=== PATIENT | male | born 1970 | race African-American/Black ===

== ENCOUNTER 2025-04-03 17:11 | Emergency (ER) | payer BC, SELFPAY ==
--- NOTE | ~2025-04-03 | CT_ITS ---
CT abdomen pelvis w con Ordering provider: Michelle Levin PA-C History: 55 years Male with . abd pain, nausea, constipatoin . Comparison: None. Technique: CT abdomen and pelvis with IV and without oral contrast. Automated exposure control and it erative reconstruction technique were employed. The dose-length product was 328.63 mGy-cm. 100 mL Omn ipaque 350 was given IV. Findings: VISUALIZED LOWER CHEST: Left lower lobe pleural-based nodule is seen measuring 1.3 x 1.5 cm. Further evaluation advised. Dependent atelectatic changes. UPPER ABDOMINAL ORGANS: Liver: Enhancing lesion is seen in the right lobe segment #7 which Measures 3.2 x 4.8 cm. This may represent a hemangioma but further evaluation with MRI with hemangiom a protocol is advised to exclude a mass or confirm a hemangioma. Gallbladder: Contracted. Spleen: Normal. Stomach/duodenum: Normal. Pancreas: Normal. Adrenals: Normal. Kidneys: Normal. PELVIC ORGANS: The bladder is underfilled with thickened wall. Further evaluation for cystitis is adv ised. BOWEL AND MESENTERY: Colon: No evidence of diverticulitis. Fecal material is loaded in the colon. Normal appendix. Small Bowel: Normal. No obstruction. Peritoneum/mesentery: No free air or free fluid. No mesenteric lymphadenopathy. RETROPERITONEUM: Normal aorta. No retroperitoneal lymphadenopathy. MUSCULOSKELETAL: Superficial soft tissues: The superficial soft tissues are normal. Bones: Age appropriate degenerative changes of the spine. Sclerotic changes in the inferior endplate of L3, inferior endplate of L4 and superior endplate of L5 which is most likely degenerative. Follow- up advised. IMPRESSION: 1. Nodule in the left lower lobe measuring 1.3 x 1.5 cm. Further evaluation advised with PET scan. 2. Enhancing lesion in the right lobe of the liver which may be a meningioma. Mass cannot be exclude d. Further evaluation with MRI with dynamic hemangioma protocol. 3. No evidence of appendicitis, diverticulitis or intestinal obstruction. 4. Constipation Reviewed, dictated and finalized at location A. IMPRESSION: 1. Nodule in the left lower lobe measuring 1.3 x 1.5 cm. Further evaluation ad vised with PET scan. 2. Enhancing lesion in the right lobe of the liver which may be a meningioma. Mass cannot be excluded. Further evaluation with MRI with dynamic hemangioma pr otocol. 3. No evidence of appendicitis, diverticulitis or intestinal obstruction. 4. Constipation
[2025-04-03 17:30] VITALS: BP 149/87; PULSE 76; RESP 16; TEMP 36.8; O2SAT 100
[2025-04-03 18:25] LABS: Basophils Percent Auto 0.4 % (0.2-1.2); Eosinophils Absolute Auto 0.2 K/mm3 (0-0.3); Eosinophils Percent Auto 2.8 % (0-4.4); Hematocrit 41.9 % (42.0-52.0); Hemoglobin 13.3 g/dL (14.0-18.0); Immature Granulocyte Absolute 0.02 K/mm3 (0.00-0.031); Immature Granulocyte Percent A 0.3 % (0-0.5); Lymphocytes Absolute Auto 2.86 K/mm3 (0.9-3.2); Lymphocytes Percent Auto 37.7 % (18.3-44.2); Mean Corpuscular HGB Conc 31.7 g/dl (32-36); Mean Corpuscular Hemoglobin 27.9 pg (26-34); Mean Platelet Volume 9.9 fl (7.4-10.4); Monocytes Absolute Auto 0.7 K/mm3 (0.1-0.6); Monocytes Percent Auto 8.6 % (2.6-8.5); Neutrophils Absolute Auto 3.8 K/mm3 (1.3-6.7); Neutrophils Percent Auto 50.2 % (45.5-73.1); Platelet Count Result 267 k/mm3 (150-375); Red Blood Count 4.76 M/mm3 (4.6-6.20); Red Cell Distribution Width 15.1 % (11.5-14.5); White Blood Count 7.6 K/mm3 (4.5-10.0)
[2025-04-03 18:29] LABS: Add Urine Microscopic? YES; Appearance Urine Cloudy (Clear); Bacteria Urine None Seen /hpf; Bilirubin Urine Negative (Negative); Blood Urine Negative (Negative); Color Urine Yellow (Yellow); Glucose Urine UA Negative (Negative); Ketones Urine Trace mg/dL (Negative); Leukocyte Esterase Ur Negative LEU/UL (Negative); Nitrate Urine Negative (Negative); Non Pathogenic Casts 0-2; Protein Urine Negative (Negative); RBC Urine 0-2 /hpf (0-2); Squamous Epithelial Cell Urine None Seen /hpf (Few); WBC Urine 0-5 /hpf (0-3)
[2025-04-03 18:31] LABS: Alanine Aminotransferase 21 U/L (6-50); Albumin Level 4.3 g/dL (3.5-5.1); Alkaline Phosphatase 73 U/L (38-126); Anion Gap 5 mmol/L (4-12); Aspartate Amino Transferase 39 U/L (17-59); Bilirubin,Total 0.3 mg/dL (0.2-1.3); Blood Urea Nitrogen 12 mg/dL (9-20); Calcium 9.3 mg/dL (8.4-10.2); Carbon Dioxide 31 mmol/L (22-30); Chloride 107 mmol/L (98-107); Estimated CRCL calculation 74 ml/min; Estimated Glomerular Filt Rate > 60; Glucose 100 mg/dL (65-110); Lipase 68 U/L (23-300); Potassium 3.9 mmol/L (3.4-5.0); Sodium 143 mmol/L (137-145); Total Protein 7.7 g/dL (6.3-8.2)
--- OUTSIDE RECORDS SUMMARY | 2025-04-03 19:04 | XMS_ITS | Encounter Summary ---
Author Organization [facility] [address] [place] [address] Phone Care Team Providers Care [employer]let [employer] Artistic Director Name Role Phone George Foreman MD Primary Care Provider [phone] Reason for Referral * Imaging (Routine) - Closed Specialty Diagnoses / Procedures Referred By Babak isaac Referred To Contact Radiology Diagnoses Cigarette smoker Procedures CT Lung Screening LDCT Jorje Montenegro MD [address] [place] [id number] Phone: tel: fax: [facility] [address] [place] [address] Phone: tel: fax: Referral ID Status Reason Start Date Expiration Date V isits Requested Visits Authorized [id number] Closed Perform Procedure 02/25/2024 02/25/2025 1 1 Encounter Details Date Type Department Care Team (Late st Contact Info) Description 02/25/2024 [facility] [address] [id number] Jorje Montenegro MD [address] [place] [address] Cigarette smoker (Primary Dx) Social History Tobacco Use Types Packs/Day Years Used Date Smoking Tobacco: Never Assessed Sex and Gender Information Value Date Recorded Sex Assigned at Not on file Legal Sex Male 8:16 PM EDT Gender Identity Not on file Sexual Orientation Not on file documented as of this encounter Plan of Treatment Scheduled Orders Name Type Priority Associated Diagnoses Orde r Schedule CT Lung Screening LDCT Imaging Routine Cigarette smoker Expected: 02/25/2024, Expires: 02/24/2025 documented as of this encounter Visit Diagnoses Diagnosis Cigarette smoker- Primary Tobacco use disorder documented in this encounter Care Teams [employer] Artistic Director Relationship Specialty Start Date End Date George Foreman MD [address] [place] [phone] PCP - General Primary Care 08/28/24 documented as of this encounter
--- OUTSIDE RECORDS SUMMARY | 2025-04-03 19:04 | XMS_ITS | Continuity of Care Document ---
Author Organization [facility] Address [address] [place] [address] Care Team Providers Care Pharmacy Informaticist Name Role Phone Jaycob Corey MD Unavailable Unavailable Allergies, Adverse Reactions, Alerts Substance Reaction Status Criticality No Known Allergies Active No Inform ation Advance Directives Directive Yes / No Effective Date File Name No Information Encounters Encounter Description Practice Location Reason(s) For Visit Diagnoses Date Provider Providers Copied on Encounter [facility] , [address] [place] [address] No Information 9 Madhav Devries. [address] [place] [address], . tel:[phone] [facility] , [address] [place] [address] No Information 9 No Information [facility] , [address] [place] [address] No Information 9 No Information [facility] , [address] [place] [address] R&E No Information 9 No Information [facility] , [address] [place] [address] R&E Human immunodeficie ncy virus [HIV] diseaseEsopha geal reflux 9 Madiha Kimbrough. [address] [place] [address], . tel:[phone] Family History Family Member Type Diagnosis Age At Onset No Information Payers Payer name Insurance type Covered libertarian ID Authoriza tion(s) No Information Social History Type Description Quantity Date Captured Comments Alcohol Use Details Unknown Caffeine Use Details Unknown Tobacco Use Status No Information Smoking Status No Information Sex Male Vital Signs Date / Time: Height Weight BMI Pulse Rate Blood Pressure Temperature Respiratory Rate Body Surface Area Head Circumference BMI percentile Pulse Ox Inhaled Ox 11:27 AM 86.183 kg (190.00 lbs) 104 /min 99.60 F 14 /min 96 11:32 AM 150/96 mm[Hg] Chief Complaint And Reason For Visit No Information Plan Of Treatment Date Type Action Status Future Order: Lab Order BASIC ME TABOLIC PANEL (BMP), Scheduled for: Ordered Future Order: Lab Order HIV-1 RN A BY PCR, QN. (LHIVRNA), Scheduled for: Ordered Future Order: Lab Order HEPATITI S B CORE AB TOTAL (LHBCAB), Scheduled for: Ordered Future Order: Lab Order HEPATITI S B SURFACE ANTIBODY (LHBSAB), Scheduled for: Ordered Future Order: Lab Order HEPATITI S B SURFACE ANTIGEN (LHBSAG), Scheduled for: Ordered History Of Present Illness Encounter Date Complaint History Of Prese nt Illness No Information Instructions Date Instruction Additional Infor mation No Information Assessments Type Assessment Date No Information
--- OUTSIDE RECORDS SUMMARY | 2025-04-03 19:04 | XMS_ITS | Clinical Summary ---
Author Organization [facility] Address [address] [place] [address] Phone Care Team Providers Care Flour Mixer Helper Name Role Phone George Foreman MD Primary Care Provider Allergies No known active allergies Medications pravastatin (Pravachol) 10 mg tablet Take 10 mg by mouth. 09/25/2024 Active Symtuza [phone] mg tablet 09/25/2024 Active Active Problems No known active problems Social History Tobacco Use Types Packs/Day Years Used Date Smoking Tobacco: Every Day Cigarettes Tobacco Cessation:Ready to Q uit: Not Asked; Counseling Given: Not Answered Comments:A day Alcohol Use Standard Drinks/Week Comments Yes 0 (1 standard drink = 0.6 oz pur e alcohol) Sex and Gender Information Value Date Recorded Sex Assigned at Not on file Legal Sex Male 8:16 PM EDT Gender Identity Not on file Sexual Orientation Not on file Last Filed Vital Signs Vital Sign Reading Time Taken Comments Blood Pressure 152/90 09/26/2024 11:35 AM EST Pulse 67 09/26/2024 11:34 AM EST Temperature 36.8 C (98.2 F) 09/26/2024 9:56 AM EST Respiratory Rate 18 09/26/2024 9:56 AM EST Oxygen Saturation 99% 09/26/2024 11:35 AM EST Inhaled Oxygen Concentration - - Weight 90.7 kg (200 lb) 09/26/2024 9:56 AM EST Height 188 cm (6' 2) 09/26/2024 9:56 AM EST Body Mass Index 25.68 09/26/2024 9:56 AM EST Plan of Treatment Health Maintenance Due Date Last Done Comments CT Colonography 1971 FIT-DNA 1971 FIT 1971 FOBT 1971 HIV Screening 1971 Sigmoidoscopy 1971 Hepatitis B Vaccines (1 of 3 - 19+ 3-dose series) 1990 Zoster Vaccines (1 of 2) 2021 COVID-19 Vaccine (3 - 2023- season) 2024 07/09/2021, 06/08/2021 Depression Screening 11/01/2024 Colonoscopy 09/26/2027 09/26/2024 Colorectal Cancer Screening 09/26/2027 MMR Vaccines Completed 01/04/1975 Pneumococcal Vaccine: 50+ Years Completed 07/22/2022, 09/02/2016, 12/12/2015, Additional history exists Influenza Vaccine Completed 09/25/2024, , 08/18/2021, Additional history exists HIB Vaccines Aged Out No longer eligi ble based on patient's age to complete this topic HPV Vaccines Aged Out No longer eligi ble based on patient's age to complete this topic Meningococcal B Vaccine Aged Out No l onger eligible based on patient's age to complete this topic Meningococcal Vaccine Aged Out No tatyana katja eligible based on patient's age to complete this topic RSV <20 Months Aged Out No longer rex gible based on patient's age to complete this topic Procedures Procedure Name Priority Date/Time Associated Diagnosis Comments COLONOSCOPY Routine 09/26/2024 11:00 AM EST Colon cancer screening from Last 3 Months or Most Recently Relevant to Health Maintenance Results * Colonoscopy (09/26/2024 11:00 AM EST) Anatomical Region Laterality Modality Endoscopy Narrative 09/26/2024 11:07 AM EST Table formatting from the original result was not included. Date of Service 09/26/2024 Indication Colon cancer screening Staff Kristian Watson MD (Proceduralist) Roya Feldman RN (Endo Nurse) No additional Endoscopist present for procedure. Medications See Anesthesia Record. Scope * No equipment listed * Preprocedure A history and physical has been performed, and patient medication allergies have been reviewed. The patient's tolerance of previous anesthesia has been reviewed. The risks and benefits of the procedure and the sedation options and risks were discussed with the patient. All questions were answered and informed consent obtained. Details of the Procedure The patient underwent monitored anesthesia care, which was administered by an anesthesia professional. A digital rectal exam was performed. A perianal exam was performed. The scope was introduced through the anus and advanced to the cecum. Retroflexion was performed in the rectum. The quality of bowel preparation was evaluated using the [place] Bowel Preparation Scale with scores of: right colon = 3, transverse colon = 3, left colon = 3. The total BBPS score was 9. Bowel prep was adequate. The patient experienced no blood loss. The procedure was not difficult. The patient tolerated the procedure well. There were no apparent adverse events. Findings The cecum, ascending colon, hepatic flexure and transverse colon appeared normal. Six sessile and benign-appearing polyps measuring smaller than 5 mm in the descending colon; performed cold forceps biopsy with complete en bloc removal. Patient had numerous, too numerous to count polyps in the ascending colon. There were all flat mucosa similar to the background mucosa consistent with hyperplastic polyps. They were removed with a biopsy forceps. One pedunculated and adenomatous-appearing polyp measuring 10-19 mm in the sigmoid colon; no bleeding was identified; performed hot snare with complete en bloc removal and retrieved specimen Four sessile and benign-appearing polyps measuring smaller than 5 mm in the rectum; no bleeding was identified; performed cold forceps biopsy with complete en bloc removal. Patient had numerous polyps in the rectum that all appeared to be hyperplastic polyps were removed with a biopsy forceps. There were removed in their entirety. Impression The cecum, ascending colon, hepatic flexure and transverse colon appeared normal. 10 subcentimeter polyps were removed with cold forceps biopsy One polyp measuring 10-19 mm in the sigmoid colon; performed hot snare removal Recommendation Repeat colonoscopy in 3 years, due: 09/26/2027 The polyps were hyperplastic but there was some larger size and they were biopsied to rule out adenomatous change. There was a polyp that was clearly adenomatous and it was on a long stalk in the sigmoid colon it was snared and removed with cautery. Jorje Montenegro MD ENDOSCOPY PROCEDURE ORDERABLES F inal Result from Last 3 Months or Most Recently Relevant to Health Maintenance Insurance [employer] Care Teams Flour Mixer Helper Relationship Specialty Start Date End Date George Foreman MD [address] [place] [phone] PCP - General Primary Care 08/28/24
--- OUTSIDE RECORDS SUMMARY | 2025-04-03 19:04 | XMS_ITS | Encounter Summary ---
Author Organization [facility] Address [address] [place] [address] Phone Care Team Providers Care Skein Mercerizing Machine Operator Name Role Phone George Foreman MD Primary Care Provider [phone] Reason for Referral * Outpatient Surgery (Routine) - Authorized Specialty Diagnoses / Procedures Referred By Babak isaac Referred To Contact Gastroenterology Diagnoses Colon cancer screening Procedures Colonoscopy Jorje Montenegro MD [address] [place] [address] Phone: tel: fax: Referral ID Status Reason Start Date Expiration Date V isits Requested Visits Authorized [id number] Authorized 06/06/2024 06/07/2025 2 2 Encounter Details Date Type Department Care Team (Late st Contact Info) Description 06/06/2024 Community Orders [facility] [address] [place] [address] Jorje Montenegro MD [address] [place], [place] [id number] Colon cancer screening (Primary Dx) Social History Tobacco Use Types Packs/Day Years Used Date Smoking Tobacco: Never Assessed Sex and Gender Information Value Date Recorded Sex Assigned at Not on file Legal Sex Male 8:16 PM EDT Gender Identity Not on file Sexual Orientation Not on file documented as of this encounter Plan of Treatment Not on file documented as of this encounter Results * Colonoscopy (09/26/2024 11:00 AM EST) [...] of bowel preparation was evaluated using the [place] Bowel Preparation Scale with scores of: right [...] MD ENDOSCOPY PROCEDURE ORDERABLES F inal Result documented in this encounter Visit Diagnoses Diagnosis Colon cancer screening- Primary Special screening for malignant neoplasms, colon Colon cancer screening Special screening for malignant neoplasms, colon documented in this encounter Care Teams Skein Mercerizing Machine Operator Relationship Specialty Start Date End Date Goerge Foreman MD [address] [place] [phone] PCP - General Primary Care 08/28/24 documented as of this encounter
--- OUTSIDE RECORDS SUMMARY | 2025-04-03 19:04 | XMS_ITS | Encounter Summary ---
Author Organization [facility] Address [address] [place] [phone] Phone Care Team Providers Care Proof Coin Collector Name Role Phone George Foreman MD Primary Care Provider [phone] Reason for Referral * Imaging (Routine) - Authorized Specialty Diagnoses / Procedures Referred By Babak isaac Referred To Contact Radiology Diagnoses Cigarette smoker Procedures CT Lung Screening LDCT Jorje Montenegro MD [address] [place] [address] Phone: tel: fax: [facility] [address] [place] [address] Phone: tel: fax: Referral ID Status Reason Start Date Expiration Date Visits Requested Visits Authorized [id number] Authorized Perform Procedure 08/26/2025 1 1 Encounter Details Date Type Department Care Team (Late st Contact Info) Description 08/25/2024 Community Orders [facility] [address] [id number] Jorje Montenegro MD [address] [place], [place] [phone] Cigarette smoker (Primary Dx) Social History Tobacco [...] Screening LDCT Imaging Routine Cigarette smoker Expected: 08/25/2024, Expires: 08/25/2025 documented as of this encounter Visit Diagnoses Diagnosis Cigarette smoker- Primary Tobacco use disorder documented in this encounter Care Teams Proof Coin Collector Relationship Specialty Start Date End Date George Foreman MD [address] [place] [phone] PCP - General Primary Care 08/28/24 documented as of this encounter
--- NOTE | 2025-04-03 19:16 | ED.ABDPAIN ---
HPI - Abdominal Pain General Chief Complaint: Abdominal Pain Stated Complaint: abd pain Time Seen by Provider: 04/03/25 18:07 Source: patient Mode of arrival: ambulatory Limitations: no limitations History of Present Illness HPI narrative: Patient is a 55 y/o male who presents to the ED with c/o abd pain. Patient reports having intermittent diffuse abdominal pain over the last 6 days. Denies significant aggravating or relieving factors. Did attempt to take Pepto-Bismol, but denied improvement with this. Reports nausea and constipation. States it has been several days since he had a substantial bowel movement. Did pass a small amount of stool 2 days ago. Denies vomiting. Denies fevers. Denies urinary complaints. Does admit to being under increased stress for the past 2 weeks after his father's passing. Related Data Allergies Allergy/AdvReac Type Severity Reaction Status Date / Time No Known Allergies Allergy Verified 04/03/25 18:13 Review of Systems Review of Systems: All systems reviewed & are unremarkable except as noted in HPI. All systems reviewed & are unremarkable except as noted in HPI and below Exam Narrative: GENERAL: Well appearing, well-nourished, non-toxic, in no acute distress. HEAD: Normocephalic, atraumatic. RESPIRATORY: Airway patent, respirations nonlabored. Clear to auscultation bilaterally, no rales, rhonchi, wheezing. CARDIOVASCULAR: Regular rate and rhythm without murmurs, rubs, or gallops. ABDOMINAL: Soft, mild diffuse tenderness in suprapubic region, RLQ, R mid abd, no rebound, nondistended. Normoactive BS. MUSCULOSKELETAL: Moves all extremities. No gross deformities. SKIN: Warm, dry, normal color. NEURO: A&O X3. Speech clear. PSYCHIATRIC: Appropriate mood and affect. Normal interaction. Course Vital Signs Vital signs: Vital Signs Temperature 98.3 F 04/03/25 17:30 Pulse Rate 76 04/03/25 17:30 Respiratory Rate 16 04/03/25 17:30 Blood Pressure 149/87 H 04/03/25 17:30 Pulse Oximetry 100 04/03/25 17:30 Oxygen Delivery Room Air 04/03/25 17:30 Temperature 98.3 F 04/03/25 17:30 Pulse Rate 82 04/03/25 19:32 Respiratory Rate 18 04/03/25 19:32 Blood Pressure 131/79 04/03/25 19:32 Pulse Oximetry 99 04/03/25 19:32 Oxygen Delivery Room Air 04/03/25 17:30 MDM - Abdominal Pain MDM Narrative Medical decision making narrative: Patient presented to ED with several day history of abdominal pain, constipation. Vital signs are stable upon arrival. Patient is in no acute distress. No evidence of surgical abdomen on exam, though he is diffusely tender. Admits to increased stress. Cbc without leukocytosis. H&H is stable. CMP is unremarkable. No significant electrolyte derangement. Creatinine stable. Normal LFTs and lipase. UA with trace ketones, otherwise negative. Patient given fluids in the ED. CT scan of abdomen/pelvis was obtained and showing evidence of constipation. No fecal impaction or obstruction. Does also show incidental pulmonary nodule in lesion of liver, which I made patient aware of will need further imaging as an outpatient. Discussed constipation management with patient including MiraLax/Dulcolax. Offered enema in the ED, however patient politely declined. States he will use [id number] therapies at home. He had not tried anything prior to arrival today. Will prescribe Zofran for nausea. Advised close follow-up with PCP for further evaluation. Patient given strict return precautions. He is in agreement with plan. States he is ready to go home. Discharged in stable condition. Medical Records Attestation: I reviewed the patient's medical records. Lab Data Attestation: I reviewed the patient's lab results. 04/03/25 18:14 04/03/25 18:14 Labs: Lab Results 04/03/25 Range/Units 18:14 WBC 7.6 (4.5-10.0) K/mm3 RBC 4.76 (4.6-6.20) M/mm3 Hgb 13.3 L (14.0-18.0) g/dL Hct 41.9 L (42.0-52.0) % MCV 88.0 (80-100) fl MCH 27.9 (26-34) pg MCHC 31.7 L (32-36) g/dl RDW 15.1 H (11.5-14.5) % Plt Count 267 (150-375) k/mm3 MPV 9.9 (7.4-10.4) fl Immature Gran % (Auto) 0.3 (0-0.5) % Neut % (Auto) 50.2 (45.5-73.1) % Lymph % (Auto) 37.7 (18.3-44.2) % [place] % (Auto) 8.6 H (2.6-8.5) % Eos % (Auto) 2.8 (0-4.4) % Baso % (Auto) 0.4 (0.2-1.2) % Lymph # (Auto) 2.86 (0.9-3.2) K/mm3 [place] # (Auto) 0.7 H (0.1-0.6) K/mm3 Eos # (Auto) 0.2 (0-0.3) K/mm3 Baso # (Auto) 0.0 (0.0-0.1) K/mm3 Abs Immat Gran (auto) 0.02 (0.00-0.031) K/mm3 Absolute Neuts (auto) 3.8 (1.3-6.7) K/mm3 Absolute Nucleated RBC 0.000 (0.0-0.012) K/mm3 Nucleated RBC % 0.0 (0.0-0.2) % Sodium 143 (137-145) mmol/L Potassium 3.9 (3.4-5.0) mmol/L Chloride 107 (98-107) mmol/L Carbon Dioxide 31 H (22-30) mmol/L Anion Gap 5 (4-12) mmol/L BUN 12 (9-20) mg/dL Creatinine 1.18 (0.7-1.3) mg/dL Estim Creat Clear Calc 74 ml/min Estimated GFR > 60 (59 - ) Glucose 100 (65-110) mg/dL Calcium 9.3 (8.4-10.2) mg/dL Total Bilirubin 0.3 (0.2-1.3) mg/dL AST 39 (17-59) U/L ALT 21 (6-50) U/L Alkaline Phosphatase 73 (38-126) U/L Total Protein 7.7 (6.3-8.2) g/dL Albumin 4.3 (3.5-5.1) g/dL Lipase 68 (23-300) U/L Urine Color Yellow (Yellow) Urine Appearance Cloudy H (Clear) Urine pH 7.0 (5.0-9.0) Ur Specific [place] 1.020 (1.001-1.035) Urine Protein Negative (Negative) mg/dL Urine Glucose (UA) Negative (Negative) mg/dL Urine Ketones Trace H (Negative) mg/dL Ur Blood (Man) Negative (Negative) Urine Nitrate Negative (Negative) Urine Bilirubin Negative (Negative) Urine Urobilinogen 1.0 (<2.0) mg/dL Leukocyte Esterase Rfl Negative (Negative) SEAN/UL Urine RBC 0-2 (0-2) /hpf Urine WBC 0-5 (0-3) /hpf Ur Squamous Epith Cells None seen (Few) /hpf Urine Bacteria None seen /hpf Urine Casts 0-2 Imaging Data Attestation: I personally reviewed and interpreted this imaging study as follows: Radiologist's impression: ITS Impressions Abdomen/Pelvis CT 04/03/25 20:30 IMPRESSION: 1. Nodule in the left lower lobe measuring 1.3 x 1.5 cm. Further evaluation advised with PET scan. 2. Enhancing lesion in the right lobe of the liver which may be a meningioma. Mass cannot be excluded. Further evaluation with MRI with dynamic hemangioma protocol. 3. No evidence of appendicitis, diverticulitis or intestinal obstruction. 4. Constipation Discharge Plan Discharge Clinical Impression: Diffuse abdominal pain, Incidental pulmonary nodule, Lesion of liver Constipation Qualifiers: Constipation type: unspecified constipation type Qualified Code(s): K59.00 - Constipation, unspecified Patient Disposition: Home Condition: Stable Instructions: Antibiotic Form, Constipation (ED), High Fiber Diet (ED), Abdominal Pain (ED) Additional Instructions: Recommend MiraLax and Dulcolax twice daily for the next 1 week as needed for constipation. Stay very well hydrated. Recommend high-fiber diet. Utilize Zofran as needed for nausea. Follow-up with primary care doctor for further evaluation if needed. Return to the ED if you experience worsening or severe constipation, severe abdominal pain, unable to keep down food or drink, fevers, rectal bleeding, or any other symptoms of concern. Your imaging incidentally showed a pulmonary nodule and a lesion on your liver. You will need to follow-up with your primary care doctor for this for further imaging. Patient Language: Burundian Prescriptions: New ondansetron 4 mg tablet,disintegrating 4 mg PO Q8H PRN (Reason: nausea and vomiting) Qty: 15 0RF Follow-up/Referrals: PHYSICIAN,CAREER DEVELOPMENT COORDINATOR [Primary Care Provider] - Gustavo Monzon MD [Physician] - (PRIMARY CARE) Kailee Garcia DO [Physician] - (PRIMARY CARE) Time of Disposition: 21:37
[2025-04-03] MEDS: MORPHINE SULFATE (*CRX) 4 MG/ML INJ IV PUSH (19:23)
[2025-04-03] MEDS: SODIUM CHLORIDE 0.9% IV 1,000 ML 999 ML IV CONT (19:23)
[2025-04-03] MEDS: ONDANSETRON INJ 4 MG/2 ML VIAL IV PUSH (19:23)
[2025-04-03 19:32] VITALS: BP 131/79; PULSE 82; RESP 18; O2SAT 99
== END 2025-04-03 21:51 | disposition home or self-care (01) ==
PROVIDERS: Emergency Medicine; Emergency Provider Physician Assistant
DX: K59.00 Constipation, unspecified (principal); R91.1 Solitary pulmonary nodule; K76.9 Liver disease, unspecified
CPT/HCPCS: 36415; 74177; 80053; 81001; 83690; 85025; 96361; 96374; 96375; 99284; J2270; J2405; J7030; Q9967